=== PATIENT | female | born 2000 ===

== ENCOUNTER 2020-12-18 18:48 | Emergency (ER) | payer SELFPAY ==
[~2020-12-18] VITALS: Ht 177.8 cm; Wt 54.5 kg
[2020-12-18 20:24] VITALS: BP 102/58
== END 2020-12-18 21:02 | disposition left against medical advice (07) ==
LOC: EMS 18:48 → EDBD 18:48 → EMS 21:02
DX: R55 Syncope and collapse (principal); M54.2 Cervicalgia; R51.9 Headache, unspecified; F12.90 Cannabis use, unspecified, uncomplicated
CPT/HCPCS: 93005; 99283